=== PATIENT | male | born 1980 | race Caucasian/White ===

== ENCOUNTER 2018-11-09 16:15 | Emergency (ER) | payer MEDICAID ==
[2018-11-09 16:25] VITALS: BP 116/80
--- NOTE | 2018-11-09 16:33 | EDPHY ---
H & P Time Seen by Provider: 11/09/18 16:26 HPI/ROS: CHIEF COMPLAINT: Slurring speech HISTORY OF PRESENT ILLNESS: Staff at the [facility] [employer] station called to report the patient, when police arrived he was difficult to awaken but admits to vodka ingestion. He had a warrant and is in place custody. Patient has no medical complaints. Admits to alcohol ingestion today. REVIEW OF SYSTEMS: Eye: no change in vision ENT: no sore throat Cardiac: no chest pain or syncope Pulmonary: no cough or SOB Abdomen: no vomiting, diarrhea, abdominal pain Musculoskeletal: no back pain Skin: Old wound on the dorsum of the base of the right thumb from last August. Neuro: no headache Constitutional: no fever : no urinary symptoms A comprehensive 10 point review of systems is otherwise negative aside from elements mentioned in the history of present illness. PAST MEDICAL HISTORY: Alcohol Social history: Admits to recent alcohol General Appearance: Patient is alert but slurring his speech and is cooperative with questions. Eyes: No scleral icterus. Pupils are equal. ENT, Mouth: Normal mucous membranes. Respiratory: Normal respiratory effort, breath sounds equal, lungs are clear to auscultation. Cardiovascular: Regular rate and rhythm. Gastrointestinal: Abdomen is soft and non tender. Neurological: Alert, face symmetric, normal motor and sensory in extremities. Skin: Abrasion on the chin without surrounding redness or erythema or warmth or lymphangitis. Old wound at the base of the right thumb on the dorsum which is not tender and has normal range of motion of the thumb. Slight surrounding erythema but not warm to the touch and no lymphangitis. Musculoskeletal: No peripheral edema. Psychiatric: Not agitated. Emergency Department course/MDM: ED glucose 108 Patient admits to vodka ingestion which would be consistent with his presentation here. He has a small abrasion on his chin and an old wound on his right thumb that do not appear to be acutely infected. he appears to not have evidence of acute medical or surgical emergency. Discharge to police custody. He was ambulatory in the ED and able to use a urinal. Smoking Status: Current every day smoker Constitutional: Initial Vital Signs Temperature (C) 36.9 C 11/09/18 16:24 Heart Rate 80 11/09/18 16:24 Respiratory Rate 16 11/09/18 16:24 Blood Pressure 116/80 11/09/18 16:24 O2 Sat (%) 94 11/09/18 16:24 O2 Delivery Mode Room Air Allergies/Adverse Reactions: No Known Allergies Allergy (Unverified 11/09/18 16:25) Home Medications: Medication Instructions Recorded Cephalexin [Keflex] 500 mg PO QID #40 cap 08/30/14 Sulfamethox/Tmp 800/160 mg 1 tab PO BID@1000,2200 #20 tab 08/30/14 [Bactrim Ds] Medical Decision Making - Data Points Laboratory Results: 11/09/18 16:31 POC Glucose 108 mg/dL H mg/dL (70-100) Point of Care Test Results: Chemistry 11/09/18 16:31 POC Glucose 108 mg/dL H mg/dL (70-100) Departure - Departure Disposition: Law Enforcement/Court/Long-Term Clinical Impression: Alcohol intoxication Qualifiers: Complication of substance-induced condition: uncomplicated Qualified Code(s): F10.920 - Alcohol use, unspecified with intoxication, uncomplicated Condition: Good Instructions: Alcohol Intoxication (ED) Referrals: [facility],. [Clinic] - As per Instructions
== END 2018-11-09 16:52 ==
LOC: EDUNIT#
DX: F10.920 Alcohol use, unspecified with intoxication, uncomplicated (principal)

== ENCOUNTER 2018-11-18 22:23 | Emergency (ER) | payer MEDICAID ==
--- NOTE | 2018-11-18 22:44 | EDPHY ---
H & P Stated Complaint: Passed out drunk on bus Time Seen by Provider: 11/18/18 22:24 HPI/ROS: CHIEF COMPLAINT: Alcohol intoxication HISTORY OF PRESENT ILLNESS: The patient is a homeless person. Patient was found by bystanders while seated on the bus to be severely intoxicated and therefore they called EMS system. Patient denies any injuries, denies loss of consciousness, denies any recent trauma. Patient denies coingestion, patient denies suicidal or homicidal behavior. REVIEW OF SYSTEMS: 10 systems were reviewed and negative with the exception of the elements mentioned in the history of present illness. PAST MEDICAL HISTORY: Prior ER visits for leg pain and alcohol intoxication PAST SURGICAL HISTORY: None SOCIAL HISTORY: Homeless, frequent alcohol use PHYSICAL EXAM: General Appearance: Alert, well hydrated, appropriate, and non-toxic appearing. Head: Atraumatic without scalp tenderness or obvious injury Eyes: Pupils equal, round, reactive to light, no injection. Ears: Clear bilaterally, no perforation, normal landmarks Nose: Atraumatic, no rhinorrhea, clear. Throat: mucus membranes moist. Neck: Supple, non-tender, no lymphadenopathy. Respiratory: No retractions, no distress, no wheezes, and no accessory muscle use. Lungs are clear to auscultation bilaterally. Cardiovascular: Regular rate and rhythm, no murmurs, rubs, or gallops. Gastrointestinal: Abdomen is soft, non-tender, non-distended Musculoskeletal: Normal active ROM of all extremities, atraumatic. Neurological: Alert, appropriate, and interactive. Moves all extremities equally. Skin: No rashes, good turgor, no nodules on palpation. MEDICAL DECISION MAKING: I serially examined this patient since the patient's arrival here in the emergency department. The patient continues to become more and more sober with each examination. I serially questioned the patient and the patient's story given initially has not changed. The patient still denies any trauma, any head injury, and any illicit drug use. At this point, the patient is walking the department freely and is clinically sober. We're discharging the patient to the [facility] in stable condition. Source: Patient Exam Limitations: Intoxication - Personal History Current Tetanus Diphtheria and Acellular Pertussis (TDAP): Unsure - Medical/Surgical History Hx Asthma: No Hx Chronic Respiratory Disease: No Hx Diabetes: No Hx Cardiac Disease: No Hx Renal Disease: No Hx Cirrhosis: No Hx Alcoholism: Yes Hx HIV/AIDS: No Hx Splenectomy or Spleen Trauma: No Other PMH: ETOH - Social History Smoking Status: Current every day smoker Constitutional: Initial Vital Signs Temperature (C) 36.8 C 11/18/18 22:31 Heart Rate 89 11/18/18 22:31 Respiratory Rate 16 11/18/18 22:31 Blood Pressure 117/73 11/18/18 22:31 O2 Sat (%) 91 L 11/18/18 22:31 O2 Delivery Mode Room Air Allergies/Adverse Reactions: No Known Allergies Allergy (Unverified 11/09/18 16:25) Home Medications: Medication Instructions Recorded Cephalexin [Keflex] 500 mg PO QID #40 cap 08/30/14 Sulfamethox/Tmp 800/160 mg 1 tab PO BID@1000,2200 #20 tab 08/30/14 [Bactrim Ds] Medical Decision Making - Data Points Medications Given: Discontinued Medications Chlordiazepoxide (Librium 25 Mg Prepack#6) 1 btl TAKEHOME EDNOW ONE Stop: 11/19/18 02:20 Last Admin: 11/19/18 02:22 Dose: 1 btl Departure - Departure Disposition: Home, Routine, Self-Care Clinical Impression: Alcoholic intoxication Qualifiers: Complication of substance-induced condition: with delirium Qualified Code(s): F10.921 - Alcohol use, unspecified with intoxication delirium Condition: Good Instructions: Chlordiazepoxide/Clidinium (By mouth), Alcohol Intoxication (ED) Referrals: [facility] [Outside] - As per Instructions
[2018-11-19] MEDS ORDERED: CHLORDIAZEPOXIDE 25MG PREPK#6 BTL TAKEHOME ONE (02:19)
[2018-11-19 02:50] VITALS: BP 131/76
== END 2018-11-19 02:50 | disposition home or self-care (01) ==
LOC: EDUNIT#
DX: F10.921 Alcohol use, unspecified with intoxication delirium (principal); Z59.0 Homelessness

== ENCOUNTER 2018-11-23 18:45 | Emergency (ER) | payer MEDICAID ==
--- NOTE | 2018-11-23 19:01 | EDPHY ---
H & P Stated Complaint: ETOH Time Seen by Provider: 11/23/18 19:01 HPI/ROS: HPI: This is a 38-year-old male who presents with Chief Complaint: Alcohol intoxication Location: body Quality: Alcohol intoxication Duration: Unknown Signs and Symptoms: Unable to answer secondary to intoxication Timing: Acute on chronic Severity: Moderate to severe Context: Patient arrives via EMS as patient was severely intoxicated and "[facility] out [facility] Patient was only responsive to painful stimuli and unable to ambulate on his own. Patient has been seen in this emergency room on 11/18/2018 with similar circumstances in symptoms. At the time he had no co ingestion and denies homicidal ideation, suicidal ideation. [facility] Librium [facility]. He was found with a new pay stub in his pocket. Modifying Factors: None Comment: ROS: A comprehensive 10 system review of systems is otherwise negative aside from elements mentioned in the history of present illness. MEDICAL/SURGICAL/SOCIAL HISTORY: Medical history: Alcoholism. Surgical history: Denies Social history: Current every day smoker. Family history noncontributory. CONSTITUTIONAL: Intoxicated, sleeping, middle-aged white male, awake and alert , no obvious distress HEENT: Atraumatic and normocephalic, PERRL, EOMI. Nares patent; no rhinorrhea; no nasal mucosal edema. Tympanic membranes clear. Oropharynx clear, poor dentition, no exudate and moist pink mucosa. Airway patent. No lymphadenopathy. No meningismus. Cardiovascular: Normal S1/S2, regular rate, regular rhythm, without murmur rub or gallop. PULMONARY/CHEST: Symmetrical and nontender. Clear to auscultation bilaterally. Good air movement. No accessory muscle usage. ABDOMEN: Soft, nondistended, nontender, no rebound, no guarding, no peritoneal signs, no masses or organomegaly. No CVAT. Wet pants secondary to urination. EXTREMITIES: 2/2 pulses, strength 5/5, no deformities, no clubbing, no cyanosis or edema. NEUROLOGICAL: Will open eyes to painful stimuli but quickly falls asleep. SKIN: Warm and dry, no erythema. no rash. Good capillary refill. Source: RN/, Old records Exam Limitations: Intoxication - Personal History Current Tetanus/Diphtheria Vaccine: Unsure Current Tetanus Diphtheria and Acellular Pertussis (TDAP): Unsure - Medical/Surgical History Hx Asthma: No Hx Chronic Respiratory Disease: No Hx Diabetes: No Hx Cardiac Disease: No Hx Renal Disease: No Hx Cirrhosis: No Hx Alcoholism: Yes Hx HIV/AIDS: No Hx Splenectomy or Spleen Trauma: No Other PMH: ETOH - Social History Smoking Status: Current every day smoker Constitutional: Initial Vital Signs Temperature (C) 37.4 C 11/23/18 18:48 Heart Rate 91 11/23/18 18:48 Respiratory Rate 16 11/23/18 18:48 Blood Pressure 116/74 11/23/18 18:48 O2 Sat (%) 87 L 11/23/18 18:48 O2 Delivery Mode Room Air O2 (L/minute) 2 Allergies/Adverse Reactions: No Known Allergies Allergy (Unverified 11/09/18 16:25) Home Medications: Medication Instructions Recorded Cephalexin [Keflex] 500 mg PO QID #40 cap 08/30/14 Sulfamethox/Tmp 800/160 mg 1 tab PO BID@1000,2200 #20 tab 08/30/14 [Bactrim Ds] Medical Decision Making ED Course/Re-evaluation: Vital signs reviewed and show 87% on room air. Placed on monitoring manager and oxygen supplemental 2 L nasal cannula Hypoxia is likely due to severe alcohol intoxication. Patient is currently calm and appropriate. Will continue to monitor and once more sober and able to ambulate, [facility]. Currently does not meet M1 hold criteria. 2054: Reassessed patient who is still sleeping soundly. 2244: Walking by room and patient scooting down in the ER stretcher. Patient is still clearly intoxicated and unable to speak in complete sentences. Patient asking to use the restroom to urinate. 2251: Notified by RN that patient ambulated to the bathroom without assistance. Patient is appropriate for [facility] the [facility] with Librium prepack. Will call a cab for transfer. This patient was seen under the supervision of my secondary supervising physician. I evaluated care for this patient independently. Discussed this patient with Dr. Infante who did not see the patient. Differential Diagnosis: Altered mental status including but not limited to hypoglycemia, infectious process, electrolyte abnormality, head injury and intoxicants. - Data Points Medications Given: Discontinued Medications Chlordiazepoxide (Librium 25 Mg Prepack#6) 1 btl TAKEHOME EDNOW ONE Stop: 11/23/18 22:53 Last Admin: 11/23/18 23:13 Dose: 1 btl Departure - Departure Disposition: Home, Routine, Self-Care Clinical Impression: Alcoholic intoxication without complication Condition: Good Instructions: Alcohol Intoxication (ED), Abuse of Alcohol (ED) Additional Instructions: Please refrain from drinking alcohol excessively. Referrals: [facility] [Outside] - As per Instructions
[2018-11-23 22:43] VITALS: BP 107/71
[2018-11-23] MEDS ORDERED: CHLORDIAZEPOXIDE 25MG PREPK#6 BTL TAKEHOME ONE (22:52)
== END 2018-11-23 23:34 | disposition home or self-care (01) ==
LOC: EDUNIT# → EDBD
DX: F10.920 Alcohol use, unspecified with intoxication, uncomplicated (principal); R09.02 Hypoxemia